=== PATIENT | male | born 1945 | race Two or more races ===

== ENCOUNTER 2018-04-07 21:26 | Inpatient (IN) | payer MEDICARE, BC ==
[~2018-04-07] VITALS: Ht 170.2 cm; Wt 56.5 kg
--- NOTE | 2018-04-07 21:45 | NUR ---
ADMITTING NOTE: 04/07/20182139 - PATIENT ADMITTED DIRECTLY FROM [facility] ACCOMPANIED BY 2 MALE PARAMEDICS, ON VOLUNTARY STATUS. CAME TO THE UNIT AROUND 2139. PATIENT ADMITTED FOR DEPRESSION, ANXIETY, NOT EATING. PATIENT HAS HX OF DEPRESSION, WITH SOMATIC DELUSIONS, PACEMAKER. PATIENT PLACED IN BED COMFORTABLY, ALERT ORIENTED X4, CALM, COOPERATIVE, ANXIOUS, APPROPRIATE, THOUGHT PROCESS INTACT, DEPRESSED, WELL ORGANIZED AMBULATORY. SKIN WARM AND INTACT. SHOWS NO S/S OF PAIN OR DISCOMFORT. RESPIRATION EVEN, BREATHING PATTERN NON-LABORED, NO APPARENT DISTRESS NOTED. BELONGINGS WERE INVENTORIED AND CHECKED FOR CONTRABAND, VALUABLES PUT TO SAFE. PATIENT IS UNDER THE PSYCHIATRIC CARE OF DR. OWUSU AND MEDICAL CARE OF TIFFANIE MELVIN. NATALIIA SEEN AND EXAMINED PATIENT, MADE AWARE OF MED RECON. PATIENT HAD PNEUMONIA VACCINE IN 2016, FORGOT THE MONTH, FLU IN 2116 ALSO. HAS ALLERGY TO MEPERIDINE. BED LOCKED AND PLACED ON LOWEST POSITION. WILL CONTINUE TO MONITOR Q 15 MINS. TO MAINTAIN SAFETY.
--- NOTE | 2018-04-07 22:45 | NUR ---
OFFERED SLEEPING PILL X2, C/O INSOMNIA, PATIENT REFUSED, HE SAID THAT HE IS AFRAID OF NEW MEDICINE.
--- NOTE | 2018-04-07 23:05 | NUR ---
PATIENT EXPRESSED HIS FEELING OF ANXIETY, OFFERED ATIVAN, HE REFUSED, STATED, " I AM STAYING AWAY FROM ATIVAN."
[2018-04-08] MEDS ORDERED: ALBU8.5H8 IH (00:21)
[2018-04-08] MEDS ORDERED: MONT10TA22 PO (00:21)
[2018-04-08] MEDS ORDERED: MIRT15TA7 PO (00:21)
[2018-04-08] MEDS ORDERED: TEMAZEPAM 7.5 MG CAPSULE PO PRN (00:30)
[2018-04-08] MEDS ORDERED: LORAZEPAM 0.5 MG TABLET PO PRN (00:30)
[2018-04-08] MEDS ORDERED: ACETAMINOPHEN 325 MG TABLET PO PRN (00:30)
[2018-04-08] MEDS ORDERED: MAG HYDROX/AL HYDROX/SIMETH 30 ML UDC PO PRN (00:30)
[2018-04-08] MEDS ORDERED: ALBU8.5H8 INH (01:04)
[2018-04-08] MEDS ORDERED: CETI-102 PO (01:04)
[2018-04-08] MEDS ORDERED: ALPR0.255 PO (01:04)
--- NOTE | 2018-04-08 06:23 | NUR ---
Patient slept x1 hour, rfused temazepam and ativan last night after meds were offered. Will notify MD today, will report to day RN to follow-up with MD. Patient is also requesting for medications other than temzepam and ativan.
[2018-04-08] MEDS: ALBUTEROL FS 2.5 MG/0.5 ML VIAL.NEB NEB SCH ×3 (07:35→15:30)
[2018-04-08 08:15] VITALS: BP 114/55
[2018-04-08] MEDS: MONTELUKAST SODIUM (10MG) 10 MG TABLET PO SCH (09:50)
[2018-04-08] MEDS: QUETIAPINE FUMARATE 25 MG TABLET PO SCH ×2 (11:56→16:32)
[2018-04-08] MEDS ORDERED: ROSU40TA22 PO (12:15)
--- NOTE | 2018-04-08 14:47 | NUR ---
INITIAL DISCHARGE PLAN: Pt will return home to [address] [place] [id number] JAY confirmed with pts daughter Ling [phone] that it is safe for pt to return home. JAY will assist with safe and proper discharge home in collaboration with .
[2018-04-08 16:17] VITALS: BP 136/63
--- NOTE | 2018-04-08 20:55 | NUR ---
MS RN RECEIVING NOTES FROM GPS [facility] RECEIVED PT FROM GPS [facility] IN STABLE CONDITION, A & O X 3, AMBULATORY, ABLE TO VERBALIZE NEEDS. DENIED ANY PAIN, NO SOB, NO ACUTE CHANGES NOTED. NO NEED TO DISCHARGE FROM GPS & NO NEED TO ADMIT TO MED SURG PER CREW MEMBER MAURICE. NO IV ACCESS. PT ASKS QUESTIONS REPETITIVELY ABOUT MEDS & CARE. EXPLAINED WELL. SKIN CLEAR INTACT. ON CARDIAC DIET, ABLE TO SWALLOW WITHOUT COMPLICATIONS. PERSONAL BELONGINGS WERE KEPT IN SAFE @ GPS UNIT, PER PT & CONFIRMED WITH RN FROM GPS. BED IN LOW LOCKED POSITION. CALL LIGHT WITHIN REACH. SAFETY MEASURES IN PLACE. MONITORING THE PT VERY CLOSELY.
[2018-04-08 21:00] VITALS: BP 110/60
--- NOTE | 2018-04-08 21:04 | NUR ---
PT TRANSFERED TO GO ROOM 106. REPORT GIVEN TO THE RN. PT ACCOMPANIED BY THE QUALITY ASSURANCE TECH WITH HIS BELONGINGS. PT IN A STABLE CONDITION UPON TRANSFER, NO COMPLAIN OF PAIN/DISCOMFORT AT THIS TIME, NO SOB, NO ACUTE DISTRESS NOTED.
[2018-04-08] MEDS: MIRTAZAPINE 15 MG TABLET PO SCH (21:27)
[2018-04-08] MEDS: ATORVASTATIN 40 MG TABLET PO SCH (21:28)
--- NOTE | 2018-04-09 01:00 | NUR ---
MS RN NOTE PT NOTED TO BE SLEEPING COMFORTABLY. NO NELLIE NOTED. MONITORING CLOSELY.
--- NOTE | 2018-04-09 03:59 | NUR ---
MS RN NOTE PT IS STILL ASLEEP COMFORTABLY.
[2018-04-09 06:34] LABS: BASOPHILS % (AUTO) 0.3 % (0.0-2.0); EOSINOPHILS % (AUTO) 3.5 % (0.0-6.0); HEMATOCRIT 35 % (39-51); HEMOGLOBIN 11.8 g/dL (13.5-17.5); LYMPHOCYTES % (AUTO) 35.5 % (20.0-44.0); MEAN CORPUSCULAR HGB CONC 34 g/dl (31.0-36.0); MEAN CORPUSCULAR VOLUME 97 fL (80-96); MONOCYTES # (AUTO) 0.5 /CMM (0.1-1.30); MONOCYTES % (AUTO) 9.7 % (2.0-12.0); NEUTROPHILS # (AUTO) 2.9 /CMM (1.8-8.9); PLATELET COUNT (AUTO) 147 /CMM (150-450); RDW COEFFICIENT OF VARIATION 12.9 (11.5-15.0); RED BLOOD CELL COUNT(AUTO) 3.59 MIL/uL (4.5-6.0); WHITE BLOOD COUNT (AUTO) 5.6 K/uL (4.3-11.0)
[2018-04-09 07:04] LABS: ALANINE AMINOTRANSFERASE 20 U/L (12-78); ALBUMIN 3.3 g/dL (3.4-5.0); ALKALINE PHOSPHATASE 50 U/L (46-116); ASPARTATE AMINOTRANSFERASE 15 U/L (15-37); BILIRUBIN,TOTAL 0.6 mg/dL (0.2-1.0); CALCIUM, SERUM 8.6 mg/dL (8.5-10.1); CARBON DIOXIDE 26 mmol/L (21-32); CHLORIDE 104 mmol/L (98-107); CREATININE 0.9 mg/dL (0.6-1.3); GLUCOSE 100 mg/dL (74-106); POTASSIUM 3.7 mmol/L (3.5-5.1); SODIUM SERUM 139 mmol/L (136-145); TOTAL PROTEIN, SERUM 6.4 g/dL (6.4-8.2); UREA NITROGEN, BLOOD 18 mg/dL (7-18)
[2018-04-09 07:08] LABS: CHOLESTEROL 109 mg/dL (<200); HDL CHOLESTEROL 49 mg/dL (40-60); LDL 48 mg/dL (0-99); TRIGLYCERIDES 77 mg/dL (30-150)
--- NOTE | 2018-04-09 07:17 | NUR ---
MS RN CLOSING NOTES GPS OVERFLOW PT SLEPT WELL @ NIGHT, IN STABLE CONDITION, A & O X 3, AMBULATORY, ABLE TO VERBALIZE NEEDS. DENIED ANY PAIN, NO SOB, NO ACUTE CHANGES NOTED. NO IV ACCESS. SKIN CLEAR INTACT. ON CARDIAC DIET, ABLE TO SWALLOW WITHOUT COMPLICATIONS. PERSONAL BELONGINGS WERE KEPT IN SAFE @ GPS UNIT, PER PT & CONFIRMED WITH RN FROM GPS. BED IN LOW LOCKED POSITION. CALL LIGHT WITHIN REACH. SAFETY MEASURES IN PLACE. ENDORSED TO AM RN FOR CONTINUITY OF ACRE.
[2018-04-09 08:00] VITALS: BP 116/66
--- NOTE | 2018-04-09 08:00 | NUR ---
RN OPENING NOTES GPS OVERFLOW PATIENT RECEIVED AWAKE IN BED IN NO ACUTE SIGNS OF DISTRESS. A/O X3. VERBALLY RESPONSIVE, DENIES PAIN OR DISCOMFORTS AT THIS TIME. QUIET AND CALM AT THE MOMENT. NO IV ACCESS. HOB ELEVATED. BED IN LOW/LOCKED POSITION. CALL LIGHT WITHIN REACH. SAFETY MEASURES KEPT IN PLACE. WILL CONTINUE TO MONITOR PT.
[2018-04-09] MEDS: cetrizine 10 MG TABLET PO SCH (08:53)
[2018-04-09] MEDS: QUETIAPINE FUMARATE 25 MG TABLET PO SCH ×2 (08:54→16:39)
[2018-04-09] MEDS: MONTELUKAST SODIUM (10MG) 10 MG TABLET PO SCH (08:54)
[2018-04-09] MEDS ORDERED: Medication Not On Formulary EA (Rosuvastatin Calcium 40 MG) PO SCH (09:00)
[2018-04-09] MEDS: MAGNESIUM HYDROXIDE 30 ML UDC PO PRN (13:04)
--- NOTE | 2018-04-09 13:04 | NUR ---
RN NOTES PATIENT C/O CONSTIPATION, PRN MOM 30ML GIVEN. WILL CONTINUE TO MONITOR
--- NOTE | 2018-04-09 14:09 | NUR ---
RN NOTES FOUNTAIN CLERK BILL CLEANING ON UNIT AND REPORTED THAT PT HAS BEEN COMPLAINING OF CONSTIPATION, MOM 30ML WAS GIVEN A EARLIER. I ASKED HER IF I CAN ADD COLACE 100MG CAP AND SHE SAID YES PRN. ORDER CARRIED OUT. WILL CONTINUE TO MONITOR.
[2018-04-09] MEDS ORDERED: DOCUSATE SODIUM 100 MG CAPSULE PO PRN (14:30)
[2018-04-09 16:00] VITALS: BP_SYST 116; BP_SYST 131; BP_DIAS 66
--- NOTE | 2018-04-09 18:19 | NUR ---
RN CLOSING NOTES GPS OVERFLOW PATIENT RESTING QUIETLY IN BED AT THIS TIME. A/O X3. SAME ABLE TO VERBALIZED NEEDS AND CONCERNS. COOPERATIVE WITH EPISODES OF CONFUSION, PARANOIA AND FORGETFULNESS. NEEDS ATTENDED PROMPTLY. ON ROOM AIR, BREATHING EVEN WITH NO SOB NOTED. PATIENT HAS NO IV ACCES. ALL SAFETY MEASURES KEPT IN PLACE. HOB ELEVATED. BED IN LOW/LOCKED POSITION WITH B/L UPPER SIDE-RAILS UP. CALL LIGHT WITHIN REACH. WILL ENDORSE TO BISQUE CLEANER NURSE FOR NELLIE..
--- NOTE | 2018-04-09 19:30 | NUR ---
GPS OVERFLOW/DINKEY OPERATOR INITIAL NOTES RECEIVED REPORT FROM AM NURSE WHILE CHECKING THE PATIENT AT THE SAME TIME. HE'S AWAKE SITTING IN HIS BED WHILE WATCHING TV AT THIS TIME. HE'S ALERT BUT LITTLE ANXIOUS REGARDING HIS MEDICATION. I TOLD HIM WHAT KIND OF MEDICATION THAT HE WILL TAKE IT LATER THEN HE SAYING HE DOESN'T WANT ATIVAN . I TOLD HIM IT IS ONLY PRN. AWARE WHERE HE AT .ORIENTED HOW TO USED THE CALL LIGHTS SYSTEM AND ENCOURAGE HIM TO USE IF HE NEEDS SOME HELP OR NEEDS THE NURSE. PLACE CALL LIGHT AT REACH. WILL CONTINUE MONITORING.
[2018-04-09 20:00] VITALS: BP 114/54
[2018-04-09] MEDS: ATORVASTATIN 40 MG TABLET PO SCH (21:30)
[2018-04-09] MEDS: MIRTAZAPINE 15 MG TABLET PO SCH (21:30)
--- NOTE | 2018-04-10 | NUR ---
gps utility clerk notes pt sleeping comfortably in bed without any acute distress noted. kept him comfortable and safe at all times. will continue closely monitoring.
--- NOTE | 2018-04-10 07:50 | NUR ---
GPS OVF/ TWISTER TENDER CLOSING NOTES PT AWAKE AND ALERT COLASE GIVEN BECAUSE AFTER EXPLAINING TO HIM THE PURPOSE OF IT. STILL NO BOWEL MOVEMENT BUT NO ABDOMINAL PAIN NOTED. SLEPT WELL AND STABLE RACHEL THE NIGHT. NO AGITATION ONLY NOTED SOME ANXIETY BUT REFUSING TO TAKE ATIVAN. ENDORSE TO AM NURSE FOR CONTINUITY OF CARE.
[2018-04-10 08:00] VITALS: BP 124/59
--- NOTE | 2018-04-10 08:09 | NUR ---
RECEIVED AWAKE ,NO SUICIDAL IDEATION,CALM AND QUIET.
[2018-04-10] MEDS: cetrizine 10 MG TABLET PO SCH (08:22)
[2018-04-10] MEDS: QUETIAPINE FUMARATE 25 MG TABLET PO SCH ×2 (08:22→16:27)
[2018-04-10] MEDS: MONTELUKAST SODIUM (10MG) 10 MG TABLET PO SCH (08:22)
--- NOTE | 2018-04-10 09:00 | NUR ---
RN INITIAL NOTES: RECEIVED REPORT FROM CHARGE NURSE, MARGARET, PATIENT RESTING IN BED. NONLABORED BREATHING NOTED ON ROOM AIR. DENYING PAIN AT THE MOMENT. NO IV SITE PER GPS POLICY. DENYING SI AND HI. NO SHARP OBJECTS AT BEDSIDE. DENYING HALLUCINATIONS
--- NOTE | 2018-04-10 14:00 | NUR ---
RN NOTES: REQUESTED SITTER FROM [employer] AIRCRAFT INSTRUMENT TESTER. CHARGE NURSE MARGARET NOTIFIED WELL. PATIENT VOLUNTARILY ADMITTED HIMSELF. DENYING SI AND HI. NO SHARP OBJECTS AT BEDSIDE. Q 15 MIN HEADCHECKS DONE BY STAFF. NO HALLUCINATION NOTED
[2018-04-10] MEDS: ALBUTEROL FS 2.5 MG/0.5 ML VIAL.NEB NEB SCH ×3 (15:07→23:09)
--- NOTE | 2018-04-10 15:07 | NUR ---
RT PATIENT ASSESSED, AWAKE, ALERT, ZERO SOB. PATIENT DOES NOT WANT BREATHING TX'S AT THIS TIME.
[2018-04-10 16:00] VITALS: BP 128/57
[2018-04-10] MEDS: METFORMIN 500 MG TABLET PO SCH (16:44)
--- NOTE | 2018-04-10 16:44 | NUR ---
PATIENT REFUSING METFORMIN. PATIENT EDUCATED ON DM, METFORMIN, WELL INSULIN. DISCUSSED WITH PATIENT THE IMPORTANCE OF FOLLOWING UP WITH PRIMARY HEALTH CARE PROVIDER WELL. STILL REFUSED METFORMIN. BILL WRIGHT NP AWARE
--- NOTE | 2018-04-10 19:20 | NUR ---
GPS RN NOTES: RECEIVED PT IN AND IS ON ROOM AIR. PT IS A/OX3. CALL LIGHT WITHIN PT'S REACH. BED KEPT IN LOW, LOCKED POSITION, AND SIDE RAILS X 2UP. WILL CONTINUE TO MONITOR PT. Addendum: 04/10/18 at 2224 by DEDE MAE RN NO IV.
--- NOTE | 2018-04-10 19:35 | NUR ---
RN CLOSING NOTES: PATIENT RESTING IN BED. NONLABORED BREATHING NOTED ON ROOM AIR. DENYING PAIN AT THE MOMENT. NO IV SITE PER GPS POLICY. DENYING SI AND HI. NO SHARP OBJECTS AT BEDSIDE. DENYING HALLUCINATIONS. HEADCHECKS DONE EVERY 15 MINUTES BY STAFF. FALL PRECAUTIONS IMPLEMENTED
--- NOTE | 2018-04-10 19:45 | NUR ---
PT IS AWAKE AND ALERT. REFUSING BREATHING TX. NOT SOB NOTED. RN NOTIFIED. WILL CONT TO MONITOR.
[2018-04-10 20:00] VITALS: BP 110/51
[2018-04-10] MEDS: MIRTAZAPINE 15 MG TABLET PO SCH (21:20)
[2018-04-10] MEDS: ATORVASTATIN 40 MG TABLET PO SCH (21:20)
[2018-04-11] MEDS: ALBUTEROL FS 2.5 MG/0.5 ML VIAL.NEB NEB SCH ×6 (03:30→23:30)
[2018-04-11 04:00] VITALS: BP 105/54
--- NOTE | 2018-04-11 06:34 | NUR ---
RN CLOSING NOTES: ALL NEEDS WERE ATTENDED AND ANTICIPATED FOR. PT ASLEEP AT THIS TIME AND RESTING COMFORTABLY. PT ON ROOM AIR AND TOLERATING WELL. NO IV NOTED. CALL LIGHT WITHIN PT'S REACH. BED KEPT IN LOW, LOCKED POSITION, AND SIDE RAILS X2UP . WILL ENDORSE TO AM NURSE FOR NELLIE.
--- NOTE | 2018-04-11 07:30 | NUR ---
PT RECEIVED RESTING COMFORTABLY IN BED. NO S/S OR C/O PAIN OR DISTRESS NOTED. SIDE RAILS UP X2, CALL LIGHT LEFT WITHIN REACH. WILL CONTINUE PLAN OF CARE.
[2018-04-11] MEDS: MONTELUKAST SODIUM (10MG) 10 MG TABLET PO SCH (08:24)
[2018-04-11] MEDS: cetrizine 10 MG TABLET PO SCH (09:00)
[2018-04-11] MEDS: METFORMIN 500 MG TABLET PO SCH ×2 (09:00→16:11)
[2018-04-11] MEDS: QUETIAPINE FUMARATE 25 MG TABLET PO SCH ×2 (09:49→16:10)
--- NOTE | 2018-04-11 18:28 | NUR ---
CHANGE OF SHIFT REPORT PT RESTING COMFORTABLY IN BED. NO S/S OR C/O PAIN OR DISTRESS NOTED. SIDE RAILS UP X2, CALL LIGHT LEFT WITHIN REACH. PT KEPT CLEAN, DRY, AND COMFORTABLE. NO SIGNIFICANT CHANGES SINCE PREVIOUS SHIFT. WILL GIVE REPORT TO SCOTTIE MANUEL.
[2018-04-11 20:00] VITALS: BP 118/56
--- NOTE | 2018-04-11 20:30 | NUR ---
GPS RN NOTE PT BROUGHT TO 2ND FLOOR TO GPS OVERFLOW ON W/C TO ROOM 203 PER CHARGE NURSE. PT IN NO DISTRESS OR DISCOMFORT NOTED. ALL THE BELONGINGS ALSO BROUGHT WITH THE PT. PT KEPT ON SAYING THAT WE WANT TO LEAVE IN THE MORNING DUE TO SOME APPOINTMENTS.
[2018-04-11] MEDS: ATORVASTATIN 40 MG TABLET PO SCH (21:08)
[2018-04-11] MEDS: MIRTAZAPINE 15 MG TABLET PO SCH (21:08)
[2018-04-12] MEDS: ALBUTEROL FS 2.5 MG/0.5 ML VIAL.NEB NEB SCH ×2 (07:35→11:25)
[2018-04-12 08:00] VITALS: BP 125/68
[2018-04-12] MEDS: cetrizine 10 MG TABLET PO SCH (08:12)
[2018-04-12] MEDS: QUETIAPINE FUMARATE 25 MG TABLET PO SCH (08:13)
[2018-04-12] MEDS: MONTELUKAST SODIUM (10MG) 10 MG TABLET PO SCH (08:13)
[2018-04-12] MEDS: METFORMIN 500 MG TABLET PO SCH (08:14)
--- NOTE | 2018-04-12 09:21 | NUR ---
GPS KALEB RODRIGUEZ NOTES: PT VERBALIZED THAT HE WILL LIKE TO BE DISCHARGED TODAY. HE REMAINS A/O X4 AND DENIES ANY SUICIDAL OR HOMICIDAL IDEATION. INSTALLMENT LOAN COLLECTOR AT BEDSIDE AND CONFIRMED WITH PT OF D/C DISPOSITION, ALONG WITH RESPONSIBLE LIBERTARIAN TO CONTACT PRIOR TO D/C. PTS DAUGHTER CARMEN (INDUSTRIAL ENGINEERING DIRECTOR) WAS CONTACTED AND VERIFIED THAT TYLER DESOUZA WILL BE THE ONE TO PICK THE PT UP ONCE DISCHARGED AND WILL TAKE HIM TO HIS HOME. THE PTS HOME ADDRESS PRINTED ON THE PTS FACE SHEET WAS CONFIRMED BY PTS DAUGHTER. DR OWUSU CONTACTED BY WHO STATES THAT PT CAN BE D/C IF CLEARED BY THE CRISIS TEAM. CRISIS TEAM CONTACTED AND STATES WILL BE HERE ONCE FINISHED IN THE ER
--- NOTE | 2018-04-12 10:55 | NUR ---
SW met with pt after learning he wanted to discharge on this date (pt is on a voluntary) for assessment and discharge planning. SW assessed for S/I AND H/I, which pt denied. Pt reported feeling "a lot better" and requested to go home. Pt stated that he had already spoken to his sister in law, Génesis Garrido / who agreed to pick him up and transport him home. SW confirmed information with pts Nurse. Pts nurse added that she had also spoken to pts daughter Ling Blanco who was in agreement with discharge plan. Sw will follow up wit pts Psychiatrist, Dr. Guan.
--- NOTE | 2018-04-12 11:04 | NUR ---
GPS TRUCK DISPATCHER NOTES: CRISIS EVAL CRISIS TEAM NURSE ANIBAL AT BEDSIDE TO EVALUATE PT. PER RN PT IS OKAY TO BE DISCHARGED AND NOT HOLDABLE. DR CAMACHO WAS NOTIFIED BY RN AND STATES THAT THE PT MAY LEAVE AMA WITH A PRESCRIPTION FOR HIS PSYCH MEDICATIONS LISTED ON HIS MEDICATION RECONCILIATION FORM. CHARGE NURSE TO COMPLETE PRESCRIPTIONS/MED RECON
--- NOTE | 2018-04-12 11:17 | NUR ---
JAY contacted Dr. Guan to discuss pts discharge. Dr. Guan requested that pt be evaluated by crisis team before discharge. JAY will follow up with treating team.
--- NOTE | 2018-04-12 12:03 | NUR ---
GPS ADULT SCHOOL TEACHER NOTES: MEDICAL MED RECON DR SAUER MADE AWARE THAT PTS WILL LEAVE AMA. PER DR. SAUER HE DOES NOT NEED ANY NEW MEDICAL PRESCRIPTIONS. PSYCH MED PRESCRIPTIONS COMPLETED BY GPS CHARGE NURSE PER DR. NERY PETIT
[2018-04-12] MEDS: MAGNESIUM HYDROXIDE 30 ML UDC PO PRN (12:44)
--- NOTE | 2018-04-12 14:24 | NUR ---
GPS BLOCK ENGRAVER AMA CLOSING NOTES PT LEFT AGAINST THE MEDICAL ADVICE OF DR. OWUSU AND DR. SAUER. HE WAS PICKED UP BY HIS SISTER IN-LAW TYLER WHO STATED THAT SHE WILL DRIVE THE PT TO HIS HOME. PTS DAUGHTER WAS ALSO NOTIFIED AND AGREEABLE TO PT LEAVING WITH TYLER. ALL BELONGINGS WERE VERIFIED WITH THE PT PRIOR TO HIM LEAVING. VALUABLES OBTAINED FROM SAFE AND GIVEN TO PT ALONG WITH HIS HOME MEDICATIONS. EXITCARE MATERIALS GIVEN TO PT ALONG WITH MED RECON. PT SIGNED ALL EXITCARE MATERIALS HOWEVER HE STRONGLY REFUSED TO SIGN AMA FORM. PT CONTINUED TO DENY ANY SUICIDAL OR HOMICIDAL IDEATION PRIOR TO HIM LEAVING. HE WAS SAFELY ESCORTED FROM THE UNIT TO HIS CAR BY THE VOICE INSTRUCTOR.
--- NOTE | 2018-04-12 15:37 | NUR ---
INCIDENT REPORT: Unique Id: [id number]
--- NOTE | 2018-04-12 16:02 | NUR ---
Discharge Plan: Patient will discharge home, [address] [facility] [address]; via private transportation at 2:00 pm. Patients sister in law Génesis Garrido, will pick pt up and transport him home. Pt and family are in agreement with discharge plan. Pt was provided with the following referrals: [facility] [address] [place] [address]; and Record Changer, Dr. Ned Bo, [address] [place] [address] for follow up services. Pt accepted referrals and agreed to follow up, "So I can get better."
== END 2018-04-12 14:30 | disposition left against medical advice (07) | DRG 885 ==
LOC: GPS 21:26 → GPSOV1 04-08 21:06 → GPSOV2 04-11 20:39
PROVIDERS: ADMIT Psychiatry & Neurology Psychiatry; ATTEND Psychiatry & Neurology Psychiatry
DX: F33.3 Major depressive disorder, recurrent, severe with psychotic symptoms (principal); E11.65 Type 2 diabetes mellitus with hyperglycemia; E44.0 Moderate protein-calorie malnutrition; Z68.1 Body mass index [BMI] 19.9 or less, adult; R64 Cachexia; F29 Unspecified psychosis not due to a substance or known physiological condition; G47.00 Insomnia, unspecified; E78.5 Hyperlipidemia, unspecified; L60.3 Nail dystrophy; D69.2 Other nonthrombocytopenic purpura; J45.909 Unspecified asthma, uncomplicated
CPT/HCPCS: 36415; 80053-TC; 80061-TC; 85025-TC; 87081-TC

== ENCOUNTER 2019-06-22 19:14 | Inpatient (IN) | payer MEDICARE, BC ==
[~2019-06-22] VITALS: Ht 170.2 cm; Wt 59.4 kg
[~2019-06-22 19:14] MED LIST: CETI-102 PO; ROSU40TA23 PO
--- NOTE | 2019-06-22 20:40 | NUR ---
GPS ADMISSION NOTES: ADMITTED A 74-YR OLD MALE, FROM [facility]. PT IS ON VOLUNTARY STATUS. PER STAFF PT CONTINUE TO COMPLAINTS OF NOT BEING ABLE TO WALK OR PERFORM HIS ADLS. PT KEEPS STATING THAT HE CANNOT GO BACK TO HIS HOME HE WILL THERE AND WONT BE ABLE TO DO ANYTHING. PER STAFF THEY PERSONALLY WENT ON A WALK WITH THE PATIENT AROUND THE NURSING STATION FOR TWO LAPS WITH A FWW AND PATIENT DID NOT DEMONSTRATE ANY UNSTEADINESS. PER NURSING PATIENT SHAVED THIS MORNING INDEPENDENTLY WELL. FAMILY WANTS INPATIENT PSYCH STAY. PT REFUSING TO TAKE THE INCREASED DOSE OF ZOLOFT. UPON FACE TO FACE ASSESSMENT, PATIENT IS ALERT AND ORIENTED X3, CALM, COOPERATIVE, DEPRESSED, AMBULATORY WITH STEADY GAIT. PT SIGNED THE VOLUNTARY FORM. PT'S RIGHTS DISCUSSED GUIDE TO PRESCRIPTION MEDICATIONS PROVIDED. V/S WNL. NO SOB. NO COMPLAIN OF PAIN/DISCOMFORT. NO APPARENT DISTRESS NOTED. BELONGINGS WERE INVENTORIED AND CHECKED FOR CONTRABAND. PUT IT IN SAFE/LOCKED CABINET. SKIN/BODY ASSESSMENT DONE. PICTURES TAKEN. PT IS UNDER THE PSYCHIATRIC CARE OF DR. MIRAMONTES ORDERS OBTAINED, AND UNDER THE MEDICAL CARE OF DR. LOUIS. ALL NEEDS ATTENDED AND ANTICIPATED. BED LOCKED AND PLACED IN LOWEST POSITION. SIDERAILS UPX2. CALL FREY WITHIN REACH. WILL CONTINUE TO MONITOR Q15 MINS FOR SAFETY AND BEHAVIOR.
[2019-06-22] MEDS ORDERED: TEMAZEPAM 7.5 MG CAPSULE PO PRN (21:00)
[2019-06-22] MEDS ORDERED: BLOOD SUGAR DIAGNOSTIC 1 EACH STRIP IN ONE (21:00)
[2019-06-22] MEDS ORDERED: ACETAMINOPHEN 325 MG TABLET PO PRN (21:00)
[2019-06-22] MEDS ORDERED: MAG HYDROX/AL HYDROX/SIMETH 30 ML UDC PO PRN (21:00)
[2019-06-22] MEDS ORDERED: LORAZEPAM 0.5 MG TABLET PO PRN (21:00)
[2019-06-22] MEDS ORDERED: MAGNESIUM HYDROXIDE 30 ML UDC PO PRN (21:00)
[2019-06-22] MEDS ORDERED: SERT100T PO (21:26)
[2019-06-22] MEDS ORDERED: QUET25TA PO (21:26)
[2019-06-22] MEDS ORDERED: PRAV10TA40 PO (21:26)
[2019-06-22] MEDS ORDERED: MONT10TA22 PO (21:26)
[2019-06-23 02:00] VITALS: BP 132/83
[2019-06-23] MEDS ORDERED: MAGNESIUM HYDROXIDE 30 ML UDC PO PRN (06:30)
[2019-06-23] MEDS ORDERED: MAG HYDROX/AL HYDROX/SIMETH 30 ML UDC PO PRN (06:30)
[2019-06-23] MEDS ORDERED: BLOOD SUGAR DIAGNOSTIC 1 EACH STRIP IN ONE (06:30)
[2019-06-23] MEDS ORDERED: ACETAMINOPHEN 325 MG TABLET PO PRN (06:30)
[2019-06-23 08:00] VITALS: BP 129/77
[2019-06-23 08:17] LABS: BASOPHILS % (AUTO) 0.2 % (0.0-2.0); EOSINOPHILS % (AUTO) 0.8 % (0.0-6.0); HEMATOCRIT 39 % (39-51); HEMOGLOBIN 13.1 g/dL (13.5-17.5); LYMPHOCYTES % (AUTO) 32.9 % (20.0-44.0); MEAN CORPUSCULAR HGB CONC 34 g/dl (31.0-36.0); MEAN CORPUSCULAR VOLUME 95 fL (80-96); MONOCYTES # (AUTO) 0.6 /CMM (0.1-1.30); MONOCYTES % (AUTO) 9.4 % (2.0-12.0); NEUTROPHILS # (AUTO) 3.4 /CMM (1.8-8.9); NEUTROPHILS % (AUTO) 56.7 % (43.0-81.0); PLATELET COUNT (AUTO) 153 /CMM (150-450); RED BLOOD CELL COUNT(AUTO) 4.06 MIL/uL (4.5-6.0); WHITE BLOOD COUNT (AUTO) 5.9 K/uL (4.3-11.0)
[2019-06-23 08:24] LABS: CHOLESTEROL 196 mg/dL (<200); HDL CHOLESTEROL 51 mg/dL (40-60); LDL 122 mg/dL (0-99); TRIGLYCERIDES 109 mg/dL (30-150)
[2019-06-23 08:28] LABS: ALBUMIN 3.6 g/dL (3.4-5.0); BILIRUBIN,TOTAL 0.9 mg/dL (0.2-1.0); CALCIUM, SERUM 9.2 mg/dL (8.5-10.1); CREATININE 1.1 mg/dL (0.6-1.3); POTASSIUM 4.1 mmol/L (3.5-5.1); TOTAL PROTEIN, SERUM 6.9 g/dL (6.4-8.2)
--- NOTE | 2019-06-23 14:03 | NUR ---
INITIAL DISCHARGE PLAN: Patient wishes to return to [facility] Address: [address], [place] [address] . JAY attempted to contact an front office administrator but was told she was busy and would return the call. JAY will help form a safe and proper discharge in collaboration with .
[2019-06-23] MEDS ORDERED: cetrizine 10 MG TABLET PO PRN (17:00)
[2019-06-23] MEDS: MONTELUKAST SODIUM (10MG) 10 MG TABLET PO SCH (18:32)
[2019-06-23 20:00] VITALS: BP 117/67
[2019-06-23] MEDS: TRAZODONE 50 MG TABLET PO SCH (22:22)
[2019-06-24 08:00] VITALS: BP 140/69
[2019-06-24] MEDS: ATORVASTATIN 10 MG TABLET PO SCH (08:20)
[2019-06-24] MEDS: SERTRALINE HCL 50 MG TABLET PO SCH (08:20)
[2019-06-24 10:14] LABS: CALCIUM, SERUM 9.4 mg/dL (8.5-10.1)
[2019-06-24 16:00] VITALS: BP 100/55
[2019-06-24] MEDS: MONTELUKAST SODIUM (10MG) 10 MG TABLET PO SCH (17:37)
[2019-06-24 20:00] VITALS: BP 90/58
[2019-06-24] MEDS: TRAZODONE 50 MG TABLET PO SCH (22:32)
[2019-06-25 08:00] VITALS: BP 112/78
[2019-06-25] MEDS: SERTRALINE HCL 50 MG TABLET PO SCH (08:33)
[2019-06-25] MEDS: ATORVASTATIN 10 MG TABLET PO SCH (08:33)
[2019-06-25 16:00] VITALS: BP 122/53
[2019-06-25] MEDS: MONTELUKAST SODIUM (10MG) 10 MG TABLET PO SCH (17:45)
--- NOTE | 2019-06-25 19:27 | NUR ---
GPS/RN RECEIVED ORDERS FROM DR MIRAMONTES TO D/C PATIENT 06/26/19 AT 0800 WITH HIS DAUGHTER A RIDE. PER CARMEN/ DAUGHTER THE PLAN IS TO TRANSFER STEPH WHITMORE TO PRIVATE FACILITY.
[2019-06-25 20:00] VITALS: BP 127/50
[2019-06-25] MEDS: TRAZODONE 50 MG TABLET PO SCH (21:04)
--- NOTE | 2019-06-26 08:00 | NUR ---
Patient refused discharge pictures.
[2019-06-26] MEDS: SERTRALINE HCL 50 MG TABLET PO SCH (08:28)
[2019-06-26] MEDS: ATORVASTATIN 10 MG TABLET PO SCH (08:28)
--- NOTE | 2019-06-26 08:30 | NUR ---
PAINT TECHNICIAN NOTE:Patient alert ,Ox3 .Patient denies SI/HI/AVH .Patient discharged to the care of his daughter Ling Blanco who will be taking pt to [facility] in [place].Patient stated "I don't need prescription,I have all my medication".All belongings returned to patient. and called back with discharge orders .Patient discharged at 8:30 with daughter .
--- NOTE | 2019-06-27 11:01 | NUR ---
DISCHARGE NOTE: Pt was discharged over the weekend; MANAGEMENT TECH NOTE:Patient alert ,Ox3 .Patient denies SI/HI/AVH. Pts mood was anxious with somatic complaints with congruent affect. Patient discharged at 8:30pm to the care of his daughter Ling Blanco [phone] [address] [place] [address]. [place] [id number]. Per daughter she [facility] Address: [address], [place] [id number] on Wednesday06/27/19 at 10:00am. The multidisciplinary exit care form was done, printed, signed, and given to the patient.
== END 2019-06-26 08:30 | disposition home or self-care (01) | DRG 885 ==
LOC: GPS 20:20
PROVIDERS: ADMIT Psychiatry & Neurology Psychiatry; ATTEND Internal Medicine
DX: F33.3 Major depressive disorder, recurrent, severe with psychotic symptoms (principal); F23 Brief psychotic disorder; F41.9 Anxiety disorder, unspecified; E78.5 Hyperlipidemia, unspecified; J45.20 Mild intermittent asthma, uncomplicated; F03.90 Unspecified dementia, unspecified severity, without behavioral disturbance, psychotic disturbance, mood disturbance, and anxiety
CPT/HCPCS: 36415; 80048-TC; 80053-TC; 80061-TC; 85025-TC; 87081-TC